=== PATIENT | female | born 1960 | race African-American/Black ===

== ENCOUNTER 2022-03-04 18:38 | Emergency (ER) | payer MEDICAID ==
[~2022-03-04] VITALS: Ht 172.7 cm; Wt 82.0 kg
[2022-03-04] MEDS ORDERED: IBUPROFEN 400MG TABLET PO ONE (19:30)
[2022-03-04] MEDS ORDERED: HYDROCODONE/ACETAMINOPHEN 5/325MG TABLET PO ONE (21:00)
[2022-03-04] MEDS ORDERED: SODIUM CHLORIDE 0.9% 1,000 ML IV ONE (21:30)
[2022-03-04 22:49] LABS: BASOPHILS % 0.6 % (0.0-2.0); EOSINOPHILS % 1.2 % (0.0-5.0); HEMOGLOBIN. 14.3 g/dL (12.0-16.0); LYMPHOCYTES % 25.4 % (20.0-50.0); MEAN CORPUSCULAR HEMOGLOBIN 30.5 pg (28.0-32.0); MEAN CORPUSCULAR VOLUME 91.6 fL (81.0-99.0); MONOCYTES % 6.7 % (2.0-8.0); NEUTROPHILS % 66.1 % (40.0-76.0); PLATELET 236 x1000/uL (130-400); RED BLOOD CELL COUNT 4.69 mill/uL (4.2-5.4); RED CELL DISTRIBUTION WIDTH 14.5 % (11.6-14.6)
[2022-03-04 22:55] LABS: CHLORIDE 112 mEq/L (98-107)
[2022-03-04 23:11] VITALS: BP 155/82
[2022-03-05] MEDS ORDERED: HYDR-4001 MT (00:23)
== END 2022-03-05 00:59 | disposition home or self-care (01) ==
LOC: ER 18:38
DX: S92.812A Other fracture of left foot, initial encounter for closed fracture (principal); M54.2 Cervicalgia; M54.9 Dorsalgia, unspecified; R07.89 Other chest pain; I10 Essential (primary) hypertension; R79.1 Abnormal coagulation profile; V43.62XA Car passenger injured in collision with other type car in traffic accident, initial encounter; Y93.89 Activity, other specified; Y92.410 Unspecified street and highway as the place of occurrence of the external cause
CPT/HCPCS: 36415; 70450; 71046; 71260; 72070; 72100; 72125; 73630; 80053; 85025; 93005; 99285; J7030